=== PATIENT | male | born 1975 | race Caucasian/White ===

== ENCOUNTER 2019-12-04 18:52 | Emergency (ER) | payer BC, SELFPAY ==
[2019-12-04 18:57] VITALS: BP 140/112; PULSE 94; RESP 18; TEMP 36.9; O2SAT 100; BMI 24.3
[2019-12-04 19:10] VITALS: RESP 18; O2SAT 98
[2019-12-04 19:19] LABS: Basophils % 0.2 %; Eosinophils # 0.1 10^3/uL (0.0-0.8); Eosinophils % 0.9 %; Hematocrit 44.8 % (42.0-52.0); Hemoglobin 15.7 g/dL (11.7-16.6); Lymphocytes # 2.4 10^3/uL (0.8-4.8); Lymphocytes % 18.2 %; Mean Corpuscular Hemoglobin 31.3 pg (28.0-34.0); Mean Corpuscular Volume 89.2 fL (80-94); Mean Platelet Volume 9.4 fL (7.4-10.4); Monocytes # 0.7 10^3/uL (0.2-0.9); Monocytes % 5.6 %; Neutrophils # 9.7 10^3/uL (1.8-7.7); Neutrophils % 74.9 %; Nucleated Red Blood Cells % 0 %; Platelet Count 357 10^3/cmm (130-400); Red Blood Count 5.02 10^6/uL (4.1-5.3); Red Cell Distribution Width 11.9 % (12.1-15.1)
--- NOTE | 2019-12-04 19:33 | CTR_ITS ---
PROCEDURE INFORMATION: Exam: CT Abdomen And Pelvis Without Contrast Exam date and time: 12/04/2019 7:42 PM Age: 44 years old Clinical indication: Abdominal pain; Flank; Right; Prior surgery; Surgery type: Gb; Additional info: Flank/abdominal pain TECHNIQUE: Imaging protocol: Computed tomography of the abdomen and pelvis without contrast. Radiation optimization: All CT scans at this facility use at least one of these dose optimization techniques: automated exposure control; mA and/or kV adjustment per patient size (includes targeted exams where dose is matched to clinical indication); or iterative reconstruction. COMPARISON: US gall bladder [id number] 01/03/2018 8:04 AM RADIATION DOSE METRICS: Total DLP: 923.61 mGy-cm FINDINGS: Limitations: The absence of intravenous contrast lessens the sensitivity of this study for solid organ abnormalities. Liver: There is no focal abnormality within the liver. Gallbladder and bile ducts: There has been a cholecystectomy. Pancreas: The pancreas is normal. Spleen: The spleen demonstrates punctate calcifications, consistent with remote granulomatous organism exposure. Adrenals: The adrenal glands are normal. Kidneys and ureters: There is a 3 mm sized stone at the right ureterovesical junction. The stone has density of 600 Hounsfield units but is not seen on the hydraulic press tender image. There is mild right hydronephrosis and hydroureter. The left kidney is normal. Stomach and bowel: There is no evidence of colitis/diverticulitis. Appendix: A normal appendix is identified. Intraperitoneal space: Unremarkable. No free air. No significant fluid collection. Vasculature: Unremarkable. No abdominal aortic aneurysm. Lymph nodes: Unremarkable. No enlarged lymph nodes. Bladder: Unremarkable as visualized. Reproductive: Unremarkable as visualized. Bones/joints: There is change in the lower lumbar spine with narrowing of the L5-S1 disc space and for small anterior and posterior osteophytes with narrowing of the neural foramen on the left. Soft tissues: Unremarkable. CT/CT kidney stone [id number] IMPRESSION: Small obstructing stone at the right ureterovesical junction. Radiation Dose CTDIVOL = (mGy): DLP = 923.61 (mGy-cm)
[2019-12-04 19:38] LABS: Alanine Aminotransferase 56 U/L (0-41); Albumin Level 4.6 g/dL (3.5-5.2); Alkaline Phosphatase 158 IU/L (40-130); Anion Gap 22.5 (5-19); Aspartate Amino Transferase 29 U/L (0-40); Blood Urea Nitrogen 13 mg/dL (6-20); Calcium 10.4 mg/dL (8.5-10.5); Carbon Dioxide 22 mmol/L (22-29); Chloride 96 mmol/L (98-107); Globulin 3.4 g/dL (1.3-4.6); Glomerular Filtration Rate 104.5 mL/min (90-130); Glucose 159 mg/dL (65-115); Lipase 9 U/L (13-60); Magnesium 1.9 mg/dL (1.7-2.3); Osmolality Calculated 284 mOsm/kg (285-295); Potassium 3.5 mmol/L (3.5-5.1); Sodium 137 mmol/L (136-145); Total Bilirubin 1.1 mg/dL (0.15-1.2)
--- NOTE | 2019-12-04 19:42 | W.ED.ABDPA2 ---
HPI - Abdominal Pain General: Chief Complaint: Abdominal Pain Stated Complaint: abd pain Time Seen by Provider: 12/04/19 18:56 History of Present Illness: HPI narrative: Marcus is a 44-year-old male who comes in complaining of right-sided abdominal pain. He describes it into his back and right flank. He denies any burning or pain with urination or blood in his urine. He has had associated nausea but has not vomited. He denies any fevers or chills. Associated Symptoms: Reports nausea; Denies chills, coffee ground emesis, constipation, GI cramping, diarrhea, dysuria, fever(s), hematochezia, hematuria, hematemesis, melena, syncope and vomiting Review of Systems General: Reports: other (negative unless marked) Const: Denies: fever, chills, body aches, fatigue, malaise or diaphoresis Eyes: Denies: change in vision or blurry vision ENMT: Denies: throat pain, painful swallowing, hoarseness, ear pain, ear discharge, Change in hearing or nasal discharge Card: Denies: chest pain, palpitations, irregular heart rhythm, syncope, pre-syncope, shortness of breath on exertion or shortness of breath when lying down Resp: Denies: shortness of breath, productive cough, non-productive cough, wheezing, coughing up blood or chest congestion GI: Reports: abdominal pain and nausea; Denies: vomiting, vomiting blood, coffee grounds in vomit, diarrhea, constipation, cramping, blood in stool or black tarry stool : Denies: difficulty urinating, painful urination, urinary frequency, urinary urgency, decreased urine ouput, urinary incontinence or blood in urine Musc: Denies: neck pain, back pain, extremity pain, extremity swelling, joint pain, joint swelling, joint warmth or joint stiffness Skin/Breast: Denies: rash, skin tenderness or yellow skin Neuro: Denies: headache, numbness in extremities, weakness in extremities, changes in sensation, lack of coordination, difficulty walking, dizziness, vertigo or confusion Endo: Denies: excessive thirst, tired all the time, cold intolerance, excessive sweating, flushing or hot flashes Radu/Lymph: Denies: easy bruising, easy bleeding, petechiae or enlarged lymph nodes All/Imm: Denies: hives, throat swelling, tongue swelling, facial swelling or acute wheezing PFSH ED PFSH: Medical History (Updated 12/04/19 @ 21:48 by Analisa Flores) Hypertension Surgical History (Updated 12/04/19 @ 20:06 by Analisa Flores) H/O hernia repair History of cholecystectomy Social History Smoking and tobacco status: never smoked Physical Exam Const: COMMON NORMALS: no apparent distress, oriented x3, no limitations, healthy appearing and well nourished EXAM LIMITATIONS: no altered mental status GENERAL APPEARANCE: cooperative, well kempt and well developed ORIENTATION/CONSCIOUSNESS: Yes awake HENMT: COMMON NORMALS: normocephalic, head/scalp atraumatic, hearing grossly normal bilaterally, external ears normal, EAC's normal, external nose normal and moist oral mucous membranes HEAD & SCALP: normal to inspection, normocephalic and atraumatic FACE & SINUS: normal facial exam and face symmetric NOSE: external nose normal and nares normal EXTERNAL EAR: Yes external ears normal EXTERNAL AUDITORY CANAL: EAC's normal MOUTH: oral and palatal mucosa normal and tongue normal Eye: COMMON NORMALS: PERRL, EOMs intact bilaterally, conjunctivae normal and no scleral icterus GENERAL EYE: normal appearance of both eyes and normal light reflex CONJUNCTIVA: Yes conjunctivae normal SCLERA: sclerae normal CORNEA: Yes corneas normal PUPIL: Yes PERRL DIRECT OPHTHALMOSCOPY: Yes normal light reflex Neck/C-Spine: COMMON NORMALS: full ROM, no lymphadenopathy, supple, no meningeal signs and no JVD GENERAL: Yes normal visual inspection and Yes trachea midline CERVICAL SPINE: Yes cervical ROM normal Chest: COMMONS NORMALS: inspection of chest normal and palpation of chest normal Resp: COMMON NORMALS: normal respiratory effort, no retractions, no use of accessory muscles and clear to auscultation bilaterally EFFORT & INSPECTION: Yes able to speak in complete sentences AUSCULTATION: clear to auscultation bilaterally Cardio: COMMON NORMALS: no JVD, regular rate, regular rhythm, S1 normal heart sound, S2 normal heart sound, no gallops, no clicks, no murmurs and no rub JUGULAR VENOUS DISTENTION: no JVD RATE: regular rate RHYTHM: regular rhythm HEART SOUNDS: S1 normal and S2 normal GI: COMMON NORMALS: soft to palpation, no hepatosplenomegaly and no masses PALPATION: Yes soft, Yes tender Details: RLQ, No guarding, No rigid and Yes no hepatosplenomegaly : COMMON NORMALS: Yes no CVA tenderness BLADDER/KIDNEY EXAM: Yes no CVA tenderness Back/Pelvis: COMMON NORMALS: no CVA tenderness, thoracic and lumbar spine normal to inspection, no thoracic nor lumbar tenderness and thoraco-lumbar ROM normal Extremity: COMMON NORMALS: normal to inspection, full ROM, normal capillary refill, no joint enlargement, no clubbing, cyanosis or edema and no calf tenderness Neuro: COMMON NORMALS: oriented x3, CN's II-XII intact bilaterally, moves all extremities, no focal motor deficits and no sensory deficits noted MENINGEAL SIGNS: Yes no meningeal signs Psych: COMMON NORMALS: mental status grossly normal, thought process normal, cooperative, affect normal, speech normal and activity/motor behavior normal APPEARANCE: Yes well kempt SPEECH: Yes normal speech THOUGHT PROCESS: normal thought process Skin: COMMON NORMALS: no rashes or lesions noted, skin turgor normal, no jaundice, no petechiae and no mottling GENERAL SKIN EXAM: no rashes or lesions noted and turgor normal Course Vital Signs: Vital signs: Vital Signs Temperature 98.4 F 12/04/19 18:57 Pulse Rate 85 12/04/19 22:02 Respiratory Rate 16 12/04/19 22:02 Blood Pressure 126/84 12/04/19 22:02 Pulse Oximetry 99 12/04/19 22:02 MDM - Abdominal Pain MDM Narrative: Medical decision making narrative: Patient has a small stone on the right side. He has only mild hydronephrosis and hydroureter. His pain is controlled at this time. He has no fever and is not been vomiting. We will go ahead and discharge him home with prophylactic antibiotics, pain medicine and medicine for nausea. Will discharge him home with a strainer he agrees to follow-up with Dr. Liang for recheck. Lab Data: Attestation: I reviewed the patient's lab results. Labs: Lab Results 12/04/19 12/04/19 12/04/19 Range/Units 19:10 19:10 20:34 WBC 13.0 H (4.0-10.0) 10^3/ uL RBC 5.02 (4.1-5.3) 10^6/u L Hgb 15.7 (11.7-16.6) g/dL Hct 44.8 (42.0-52.0) % MCV 89.2 (80-94) fL MCH 31.3 (28.0-34.0) pg MCHC 35.0 (30.0-36.0) g/dL RDW 11.9 L (12.1-15.1) % Plt Count 357 (130-400) 10^3/c mm MPV 9.4 (7.4-10.4) fL Neut % (Auto) 74.9 % Lymph % (Auto) 18.2 % [place] % (Auto) 5.6 % Eos % (Auto) 0.9 % Baso % (Auto) 0.2 % Neut # (Auto) 9.7 H (1.8-7.7) 10^3/u L Lymph # (Auto) 2.4 (0.8-4.8) 10^3/u L [place] # (Auto) 0.7 (0.2-0.9) 10^3/u L Eos # (Auto) 0.1 (0.0-0.8) 10^3/u L Baso # (Auto) 0.0 (0.0-0.1) 10^3/u L Nucleated RBC % (a uto) 0 % Nucleated RBCs # 0.0 /100WBC Sodium 137 (136-145) mmol/L Potassium 3.5 (3.5-5.1) mmol/L Chloride 96 L (98-107) mmol/L Carbon Dioxide 22 (22-29) mmol/L Anion Gap 22.5 H (5-19) BUN 13 (6-20) mg/dL Creatinine 0.8 (0.7-1.2) mg/dL GFR Calculation 104.5 (90-130) mL/min Glucose 159 H (65-115) mg/dL Calculated Osmolal ity 284 L (285-295) mOsm/k g Calcium 10.4 (8.5-10.5) mg/dL Magnesium 1.9 (1.7-2.3) mg/dL Total Bilirubin 1.1 (0.15-1.2) mg/dL AST 29 (0-40) U/L ALT 56 H (0-41) U/L Alkaline Phosphata se 158 H (40-130) IU/L Total Protein 8.0 (6.6-8.7) g/dL Albumin 4.6 (3.5-5.2) g/dL Globulin 3.4 (1.3-4.6) g/dL Lipase 9 L (13-60) U/L Urine Color Yellow (Yellow) Urine Appearance Clear (CLEAR) Urine pH 5 (5-7) Ur Specific Gravit y 1.010 (1.005-1.030) Urine Protein Neg (Negative) Urine Glucose (UA) Norm (Normal) Urine Ketones Negative (Negative) Urine Blood 3+ H (Negative) Urine Nitrate Negative (Negative) Urine Bilirubin Neg (NEGATIVE) Prot Sulfosalicyli c Acd Negative (Negative) Urine Urobilinogen Norm (Negative) mg/dL Ur Leukocyte Rosa Maria ase Negative (Negative) Urine RBC 10-15 H (0-2) /hpf Urine WBC None (0-5) /hpf Ur Squamous Epith Cells None (0-5) Urine Bacteria Trace (NONE) Imaging Data ^: CT Abd/Pel: Radiologist's impression: [place] [address] CT Scan Report Signed Patient: Marcus Plascencia Unit #: [id number] : 1975 Age/Sex: 44 / M ADM Date: 12/04/19 Loc: ER Room/Bed: Attending Dr: Ordering Provider/Ordering MD: Analisa Flores DO Date of Service: 12/04/19 Procedure(s): CT kidney stone [id number] Accession Number(s): [id number] Report Number: [id number] PROCEDURE INFORMATION: Exam: CT Abdomen And Pelvis Without Contrast Exam date and time: 12/04/2019 7:42 PM Age: 44 years old Clinical indication: Abdominal pain; Flank; Right; Prior surgery; Surgery type: Gb; Additional info: Flank/abdominal pain TECHNIQUE: Imaging protocol: Computed tomography of the abdomen and pelvis without contrast. Radiation optimization: All CT scans at this facility use at least one of these dose optimization techniques: automated exposure control; mA and/or kV adjustment per patient size (includes targeted exams where dose is matched to clinical indication); or iterative reconstruction. COMPARISON: US gall bladder [id number] 01/03/2018 8:04 AM RADIATION DOSE METRICS: Total DLP: 923.61 mGy-cm FINDINGS: Limitations: The absence of intravenous contrast lessens the sensitivity of this study for solid organ abnormalities. Liver: There is no focal abnormality within the liver. Gallbladder and bile ducts: There has been a cholecystectomy. Pancreas: The pancreas is normal. Spleen: The spleen demonstrates punctate calcifications, consistent with remote granulomatous organism exposure. Adrenals: The adrenal glands are normal. Kidneys and ureters: There is a 3 mm sized stone at the right ureterovesical junction. The stone has density of 600 Hounsfield units but is not seen on the wholesale parts salesperson image. There is mild right hydronephrosis and hydroureter. The left kidney is normal. Stomach and bowel: There is no evidence of colitis/diverticulitis. Appendix: A normal appendix is identified. Intraperitoneal space: Unremarkable. No free air. No significant fluid collection. Vasculature: Unremarkable. No abdominal aortic aneurysm. Lymph nodes: Unremarkable. No enlarged lymph nodes. Bladder: Unremarkable as visualized. Reproductive: Unremarkable as visualized. Bones/joints: There is change in the lower lumbar spine with narrowing of the L5-S1 disc space and for small anterior and posterior osteophytes with narrowing of the neural foramen on the left. Soft tissues: Unremarkable. CT/CT kidney stone [id number] IMPRESSION: Small obstructing stone at the right ureterovesical junction. Radiation Dose CTDIVOL = (mGy): DLP = 923.61 (mGy-cm) Dictated By: Cory Velázquez Signed By: Cory Velázquez Signed Date/Time: 12/04/192006 DD/ 04 Discharge Plan Discharge Patient Disposition: Home, Self-Care Clinical Impression: Right ureteral calculus Condition: Stable Prescriptions: New ibuprofen 800 mg tablet 800 mg PO TID PRN (Reason: pain) Qty: 30 RF: 0 [place] 5-325 mg tablet 1 tab PO Q6H PRN (Reason: pain) 5 Days Qty: 20 RF: 0 Zofran 4 mg tablet 4 mg PO Q6H PRN (Reason: nausea and vomiting) Qty: 20 RF: 0 Keflex 500 mg capsule 500 mg PO Q6H 10 Days Qty: 40 RF: 0 Discharge Orders: Discharge Order (Routine); Ordered 12/04/19 Ordered By: Analisa Flores Referrals: Oni Liang MD [Physician] - 1-3 days Keaton Mcdaniel MD [Primary Care Provider] - 1-3 days Discharge Diet: Advance as tolerated Discharge Activity: Increase activity as tolerated Patient Instructions: Renal Colic (ED) Activity Restrictions/Additional Instructions: Please return to the ER immediately for any of the signs or symptoms listed on your discharge instruction sheets, worsening/changing of your symptoms, you are not getting better as quickly as expected, or for ANY other cause or concerns. Return to the ER for uncontrolled pain, fever, uncontrolled vomiting, or for any other cause for concern. Be certain to strain your urine and follow-up with Dr. Liang for recheck. Discharge Date/Time: 12/04/19 22:02 Coding Level of Care Code ED Geophysical Laboratory Chief for Chg Fwd Exam Comprehensive
[2019-12-04] MEDS: sodium chloride 0.9% 1,000 ML 999 ML IV (19:55)
[2019-12-04 19:59] VITALS: RESP 18; O2SAT 98
[2019-12-04] MEDS: ondansetron 2 mg/ML SDV 2 mL 4 MG IVP (19:59)
[2019-12-04] MEDS: morphine 4 mg/mL SDV 1 mL IVP (19:59)
[2019-12-04 20:36] VITALS: BP 143/98; PULSE 81; RESP 16; O2SAT 99
[2019-12-04] MEDS: ketorolac 30 mg/mL INJ 10 MG IVP (20:39)
[2019-12-04 21:36] LABS: Urine Appearance Clear (CLEAR); Urine Color Yellow (Yellow)
[2019-12-04 21:37] LABS: Add Urine Culture? No; Bacteria Urine TRACE; Bilirubin Urine Neg (NEGATIVE); Blood Urine 3+ (Negative); Glucose Urine UA Norm (Normal); Ketones Urine Negative (Negative); Leukocyte Esterase Urine Negative (Negative); Nitrate Urine Negative (Negative); Protein Urine Neg (Negative); Sulfosalicylic Acid Urine Negative (Negative); Urobilinogen Urine Norm (Negative); pH Urine 5 (5-7)
[2019-12-04 22:02] VITALS: BP 126/84; PULSE 85; RESP 16; O2SAT 99
--- NOTE | 2019-12-05 10:44 | DCPLANNER ---
manager strategic marketing had message to schedule a follow up appointment for patient with Dr. Liang. manager strategic marketing called the office of Dr. Liang, spoke with Cristiane, gave clinic patients information. manager strategic marketing was told that patients information would be printed and given to Liliana for review. Clinic will call patient with appointment information. manager strategic marketing will call for appointment information.
--- NOTE | 2019-12-06 12:57 | DCPLANNER ---
Patient had follow up appointment scheduled for 12.06.[address] Liang. Patient did attend the appointment.
== END 2019-12-04 22:02 | disposition home or self-care (01) ==
PROVIDERS: Emergency Provider Emergency Medicine; Family Provider Family Medicine; PCP Family Medicine
DX: N20.1 Calculus of ureter (principal); I10 Essential (primary) hypertension
CPT/HCPCS: 12345; 36415; 74176; 80053; 81001; 83690; 83735; 85025; 96361; 96374; 96375; 99282; 99284; J1885; J2270; J2405; J7030

== ENCOUNTER 2019-12-06 09:05 | Outpatient (CLI) | payer BC, SELFPAY ==
--- NOTE | 2019-12-06 09:15 | XR_ITS ---
WS: [id number] ABDOMEN 1 VIEW(S) HISTORY: URETERAL CALCULUS COMPARISON: 12/04/2019 CT. Normal bowel gas pattern. No suspicious calcifications or masses. No bone abnormality. XR/XR KUB [id number] IMPRESSION: No distal RIGHT ureteral calcification identified radiographically.
== END 2019-12-06 09:06 | disposition home or self-care (01) ==
LOC: RAD 09:10
PROVIDERS: Family Provider Family Medicine; PCP Family Medicine; Visit Provider Urology
DX: N20.1 Calculus of ureter (principal)
CPT/HCPCS: 74018; 81001; 82365

== ENCOUNTER → 2023-08-23 13:01 | Outpatient (BNVA) | payer BC, SELFPAY | PROVIDERS: Family Provider Family Medicine; PCP Family Medicine; Visit Provider Family Medicine | DX: I10 Essential (primary) hypertension (principal); Z00.00 Encounter for general adult medical examination without abnormal findings; R53.83 Other fatigue; R13.10 Dysphagia, unspecified; Z90.49 Acquired absence of other specified parts of digestive tract | CPT/HCPCS: 80053; 80061; 82607; 83036; 83880; 84153; 84403; 84443; 85025; 86140 ==

== ENCOUNTER → 2025-04-15 14:40 | Outpatient (BNVA) | payer BC, SELFPAY | PROVIDERS: Family Provider Family Medicine; PCP Family Medicine; Visit Provider Family Medicine | DX: I10 Essential (primary) hypertension (principal); Z00.00 Encounter for general adult medical examination without abnormal findings; R13.10 Dysphagia, unspecified; R10.9 Unspecified abdominal pain | CPT/HCPCS: 80053; 80061; 83036; 83690; 84153; 85025 ==

== ENCOUNTER → 2025-05-28 13:24 | Outpatient (BNVA) | payer BC, SELFPAY | PROVIDERS: Family Provider Family Medicine; PCP Family Medicine; Visit Provider Family Medicine | DX: D23.62 Other benign neoplasm of skin of left upper limb, including shoulder (principal) | CPT/HCPCS: 88304 ==